=== PATIENT | female | born 1965 | race Caucasian/White ===

== ENCOUNTER → 2017-03-22 | Outpatient (CLI) | payer OTHER ==
[2015-03-17 07:24] VITALS: BP 119/65
[~2017-03-22] MED LIST: CYCL10TA2 PO; GABA-586 PO; LORA10TA68 PO
--- NOTE | 2017-03-22 16:07 | KCIC ---
Bilateral digital screening mammograms: Reason for examination: Routine screening. Comparison is made to previous studies dated 03/22/2016 and 03/22/2015. Interpretation was made with the benefit of CAD. The skin and nipples show no abnormalities. No abnormal axillary lymph nodes are seen. The breast parenchyma shows scattered fibroglandular density. (Breast density: Category B.) There are no dominant masses, suspicious calcifications or architectural distortions. Impression: No evidence of malignancy. Recommend routine screening. BI-RADS Category 1: Negative. "Our facility is accredited by the [employer] Mammography [employer]." This patient's information has been entered into a reminder system for the patient to be notified with the results of her examination and a target date for the next mammogram. Electronically signed by: Edith Amador MD (03/22/2017 4:04 PM) [id number]
== END | disposition home or self-care (01) ==
LOC: KCIC MAMMO 13:40
PROVIDERS: ATTEND Family Medicine
DX: Z12.31 Encounter for screening mammogram for malignant neoplasm of breast (principal)
CPT/HCPCS: G0202; 77067

== ENCOUNTER → 2018-01-31 | Outpatient (CLI) | payer OTHER, BC ==
[2015-03-17 07:24] VITALS: BP 119/65
--- NOTE | 2018-01-31 17:09 | KCIC ---
NECK SOFT TISSUE History: Mass behind the right knee Comparison: None. Findings: Multiple sonographic images directed toward the site of lump labeled as posterior to the right ear are submitted. At the site of palpable concern, there is nonspecific soft tissue mass with somewhat heterogeneous echogenicity measuring 2.2 x 1.2 x 1.3 cm in size, internal vascularity on color Doppler imaging. This is fairly superficial in location. Impression: 1. There is a superficial solid mass at site of palpable concern located posterior to the right ear. Electronically signed by: John Pastor MD (01/31/2018 5:05 PM) [id number]
== END | disposition home or self-care (01) ==
LOC: KCIC US 14:48
PROVIDERS: ATTEND Family Medicine
DX: R22.1 Localized swelling, mass and lump, neck (principal)
CPT/HCPCS: 76536

== ENCOUNTER → 2018-03-24 | Outpatient (CLI) | payer OTHER, BC ==
[2015-03-17 07:24] VITALS: BP 119/65
[~2018-03-24] MED LIST changes: -GABA-586 PO; +GABA300C18 PO
--- NOTE | 2018-03-24 09:32 | KCIC ---
Bilateral digital screening mammograms: Reason for examination: Routine screening. Comparison is made to previous studies dated 03/22/2017 and 03/22/2016. Interpretation was made with the benefit of CAD. The skin and nipples show no abnormalities. No abnormal axillary lymph nodes are seen. The breast parenchyma shows scattered fibroglandular density. (Breast density: Category B.) There are no dominant masses, suspicious calcifications or architectural distortions. Impression: No evidence of malignancy. Recommend routine screening. BI-RADS Category 1: Negative. "Our facility is accredited by the [employer] Mammography [employer]." This patient's information has been entered into a reminder system for the patient to be notified with the results of her examination and a target date for the next mammogram. Electronically signed by: Edith Amador MD (03/24/2018 9:28 AM) [id number]
== END | disposition home or self-care (01) ==
LOC: KCIC MAMMO 09:02
PROVIDERS: ATTEND Family Medicine
DX: Z12.31 Encounter for screening mammogram for malignant neoplasm of breast (principal)
CPT/HCPCS: 77067